=== PATIENT | female | born 1950 | race Caucasian/White ===

== ENCOUNTER 2019-05-09 23:02 | Emergency (ER) | payer OTHER ==
[~2019-05-09] VITALS: Ht 170.2 cm; Wt 95.3 kg
[2019-05-09 23:04] VITALS: Ht 170.2 cm; Wt 95.3 kg
[2019-05-10 00:06] LABS: PLATELET COUNT 317 x10^3mcL (130-400); RED CELL DISTRIBUTION WIDTH 13.7 % (11.5-14.5)
[2019-05-10 00:07] LABS: BASOPHIL % 0.8 % (0-2)
[2019-05-10 00:13] LABS: CALCIUM 8.7 mg/dL (8.5-10.1); CARBON DIOXIDE 26.5 mmol/L (21-32); CREATININE SERUM 1.2 mg/dL (0.6-1.0); POTASSIUM SERUM 3.3 mmol/L (3.5-5.1)
[2019-05-10 00:24] LABS: ALBUMIN 3.6 g/dL (3.4-5.0); BILIRUBIN TOTAL 0.4 mg/dL (0.20-1.00); TOTAL PROTEIN, SERUM 7.8 g/dL (6.4-8.2)
[2019-05-10 02:02] LABS: AMPHETAMINE QUAL UR NONE DETECTED (See below)
[2019-05-10 02:16] VITALS: BP 134/76
== END 2019-05-10 02:16 | disposition home or self-care (01) ==
LOC: ED 23:02
PROVIDERS: Emergency Medicine
DX: T40.7X5A Adverse effect of cannabis (derivatives), initial encounter (principal); R00.2 Palpitations; Y92.89 Other specified places as the place of occurrence of the external cause
CPT/HCPCS: 36415; Q0092; Q0162